=== PATIENT | female | born 1975 | race Caucasian/White ===

== ENCOUNTER 2019-12-19 05:37 | Outpatient (RCR) | payer BC ==
[~2019-12-19] VITALS: Ht 170.2 cm; Wt 86.3 kg
[~2019-12-19 05:37] MED LIST: ESTR0.62 PO; ESTR2TAB PO
== END 2019-12-19 10:16 | disposition home or self-care (01) ==
LOC: PREOP 05:37
PROVIDERS: ATTEND Internal Medicine
DX: Z01.812 Encounter for preprocedural laboratory examination (principal); Z20.828 Contact with and (suspected) exposure to other viral communicable diseases
CPT/HCPCS: 87635

== ENCOUNTER 2019-12-22 07:27 | Day surgery (SDC) | payer BC ==
--- NOTE | 2019-12-08 20:12 | HISTORY AND PHYSICAL ---
DATE OF SERVICE: COLONOSCOPY HISTORY AND PHYSICAL HISTORY OF PRESENT ILLNESS: The patient is a 44-year-old white female, who reports a past history of irritable bowel syndrome. She reported about 10 days ago after eating a handful of almonds, she developed the onset of diarrhea with crampy left lower quadrant abdominal pain. Her IBS-D symptoms have been under good control through dietary change up until that point. She did not recall previous problems with nut ingestion, although she did eat more than she was used to per her report. She had no night sweats, chills or fever and the diarrhea lasted for several days and then improved. She then had recurrence of the diarrhea 3 days ago, Wednesday evening, lasted 24 hours where she had about 6 loose nonbloody stools with intestinal bloating and also some mild nausea with no night sweats, chills or fever. She reports one colonoscopy about 9 years ago, reportedly unremarkable. PAST MEDICAL HISTORY: Significant for known BRCA2 positive status performed due to strong family history for ovarian cancer affecting her mother, her maternal grandmother and an aunt. Her mother was diagnosed at the age of 63. She is still living. Father is living at the age of 68 with reported coronary artery disease. 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 She has no past smoking history and occasional social alcohol intake, which does not aggravate her symptoms. PAST SURGICAL HISTORY: Significant for total abdominal hysterectomy and bilateral salpingo-oophorectomy done for prophylactic reasons due to BRCA2 mutation. She follows at for [facility] issues including breast screening. MEDICATIONS ON ADMISSION: Include estradiol 2 mg daily. She reports no known medical allergies. PHYSICAL EXAMINATION: GENERAL: Reveals a white female appeared to be in no acute distress. VITAL SIGNS: Weight 190.6 pounds, blood pressure 130/90, heart rate 70 and regular. HEENT: Unremarkable. Mallampati 2 pharyngeal configuration. CHEST: Clear to auscultation. NECK: Revealed no JVD, adenopathy or bruits. CARDIOVASCULAR: Reveals a regular rate and rhythm without murmur, S3 or S4. ABDOMEN: Soft, supple without mass or organomegaly. There is bilateral lower quadrant pain to palpation without rebound or guarding. EXTREMITIES: Reveal no cyanosis, clubbing or edema. ASSESSMENT AND PLAN: The patient is set up for diagnostic colonoscopy, deemed to be of higher than average risk for underlying neoplasia due to BRCA2 positive status. Prep instructions and Suprep kit were given and questions were answered. The patient was also given a flu shot today after discussion. Job ID: [id number] DocumentID: [id number] Dictated Date: 12/06/2019 16:16:39 First Coat Sander Date: 12/06/2019 17:23:00 Dictated By: KELLI XIE MD
[~2019-12-22] VITALS: Ht 170.2 cm; Wt 86.3 kg
[2019-12-22] MEDS ORDERED: D5 LR IV SOLUTION 1,000 ML IV STA ×2 (07:34→07:58)
[2019-12-22] MEDS ORDERED: D5 LR IV SOLUTION 1,000 ML IV ONE (07:38)
[2019-12-22] MEDS ORDERED: fentaNYL INJECTION 100 MCG/2 ML AMP IVP ONE (07:45)
[2019-12-22] MEDS ORDERED: MIDAZOLAM 5 MG/5 ML (VERSED) VIAL IV ONE (07:45)
--- NOTE | 2019-12-22 08:00 | Pre-Op Note & Conscious Sedat ---
Pre-Operative Progress Note H&P Reviewed The H&P was reviewed, patient examined and no changes noted. Date H&P Reviewed: Dec 22, 2019 Time H&P Reviewed: 08:00 Conscious Sedation Pre-Proced ASA Score 2 For ASA 3 and 4: Consider anesthesia and medical clearance. Also, for patients with a history of failed moderate sedation consider anesthesia. Airway Lungs Heart ASA score ASA 1: a normal healthy patient ASA 2: a patient with a mild systemic disease (mid diabetes, controlled hypertension, obesity ASA 3: a patient with a severe systemic disease that limits activity (angina, COPD, prior Myocardial infarction) ASA 4: a patient with an incapacitating disease that is a constant threat to life (CHF, renal failure) ASA 5: a moribund patient not expected to survive 24 hrs. (ruptured aneurysm) ASA 6: a declared brain- patient whose organs are being harvested. For emergent operations, add the letter E after the classification Mallampati Classification Grade 2 Sedation Plan Analgesia, Amnesia, Plan communicated to team members, Discussed options with patient/fam, Discussed risks with patient/fam The patient is an appropriate candidate to undergo the planned procedure, sedation, and anesthesia. The patient immediately re-assessed prior to indication. KELLI XIE MD Dec 22, 2019 08:00
[2019-12-22 08:20] VITALS: BP 133/95
[2019-12-22] MEDS ORDERED: PROPOFOL INJECTION 0 ML IV ONE (08:22)
[2019-12-22] MEDS ORDERED: MIDAZOLAM 2 MG/2 ML (VERSED) VIAL ONE (08:22)
[2019-12-22] MEDS ORDERED: LIDOCAINE JELLY 2% 6 ML SYRINGE TOP ONE (08:45)
[2019-12-22] MEDS ORDERED: PROPOFOL INJECTION 50 ML IV ONE (08:52)
[2019-12-22 09:05] VITALS: BP 109/70
[2019-12-22 09:10] VITALS: BP 116/72
[2019-12-22 09:15] VITALS: BP 120/79
--- NOTE | 2019-12-22 09:18 | Anesthesia-General Post-Op ---
MAC Patient Condition Mental Status/LOC: Same as Preop Cardiovascular: Satisfactory Nausea/Vomiting: Absent Respiratory: Satisfactory Pain: Controlled Complications: Absent Post Op Complications Complications None Follow Up Care/Instructions Patient Instructions None needed. Anesthesiology Discharge Order Discharge Order Patient is doing well, no complaints, stable vital signs, no apparent adverse anesthesia problems. No complications reported per nursing. JORJE URBINA CRNA Dec 22, 2019 09:17
[2019-12-22 09:45] VITALS: BP 123/85
[2019-12-22 09:55] VITALS: BP 123/85
--- NOTE | 2019-12-22 18:04 | OPERATIVE REPORT ---
DATE OF SERVICE: COLONOSCOPY SUMMARY PRIMARY CARE PHYSICIAN: Kelli Xie MD INDICATION FOR THE PROCEDURE: Left lower quadrant abdominal pain, diarrhea. DESCRIPTION OF PROCEDURE: The patient was placed in the left lateral decubitus position. Prior to undergoing colonoscopy, digital rectal evaluation was performed. Anal sphincter tone was normal and the perianal reflexes intact. No abnormalities were noted on digital inspection of anal canal or distal rectal vault. The colonoscope was then inserted into the rectum and under direct visualization and advanced to the cecum. The cecum was identified by identification of the ileocecal valve and cecal strap. Photographic documentation was obtained. Careful inspection was made. Quality of prep was fair. The patient admitted, procedure was done under Diprivan based anesthesia. FINDINGS: There were no evidence for internal or external hemorrhoids and the rectum was unremarkable. A biopsy was obtained and submitted from the rectum for microscopic colitis. The sigmoid colon, descending colon, transverse colon, ascending colon and cecum were unremarkable as was the distal terminal ileum with no evidence for inflammatory change or neoplasia or diverticular disease. Despite Diprivan anesthesia, the patient did have an irritable bowel type response, air insufflation and colonic manipulation. It is not likely the procedure would have been possible under Versed and fentanyl and certainly would have placed the patient at undue increased risk do to likely increasing amount of medication that would have been required. Future procedures will be done under Diprovan as well. Due to BRCA2 positive status, we will be abdicating repeat screening colonoscopy in 5 years. Job ID: [id number] DocumentID: [id number] Dictated Date: 12/22/2019 09:05:55 General I Farmworker Date: 12/22/2019 13:51:33 Dictated By: KELLI XIE MD [facility]
--- NOTE | 2019-12-22 19:18 | OPERATIVE REPORT ---
DATE OF SERVICE: COLONOSCOPY SUMMARY. I am her primary care physician. INDICATION FOR THE PROCEDURE: Left lower quadrant abdominal pain, diarrhea and BRCA-2 positive. DESCRIPTION OF PROCEDURE: The patient was placed in the left lateral decubitus position. Due to history of irritable bowel syndrome. The procedure was done under Diprivan based anesthesia. Digital evaluation of the anal canal and rectum was unremarkable. Anal sphincter tone was normal and the perianal reflexes intact. The colonoscope was then inserted into the rectum and under direct visualization advanced to cecum. The cecum was identified by identification of the ileocecal valve and cecal strap. Distal several centimeters of terminal ileum were inspected and unremarkable. Careful inspection was made as the colonoscope was withdrawn. Quality of prep was good. FINDINGS: There was no evidence for internal or external hemorrhoids and the rectum was unremarkable. Due to history of diarrhea, biopsy was obtained and submitted for microscopic colitis evaluation. The sigmoid colon, descending colon, splenic flexure, transverse colon, hepatic flexure, ascending colon, cecum and distal several centimeters of terminal ileum were unremarkable to gross inspection. No evidence for diverticular disease was noted. ASSESSMENT: Normal colonoscopy to the cecum including distal terminal ileum. A biopsy is pending for evaluation of microscopic colitis. Due to the fact the patient is BRCA2 positive, will be advocating repeat screening colonoscopy in 5 years. The patient was reassured by today's findings. Job ID: [id number] DocumentID: [id number] Dictated Date: 12/22/2019 10:19:53 Bench Scientist Date: 12/22/2019 19:18:15 Dictated By: KELLI XIE MD [facility]
== END 2019-12-22 09:55 | disposition home or self-care (01) ==
LOC: ENDO 07:27
PROVIDERS: ATTEND Internal Medicine
DX: R10.32 Left lower quadrant pain (principal); R19.7 Diarrhea, unspecified; Z15.01 Genetic susceptibility to malignant neoplasm of breast; Z90.710 Acquired absence of both cervix and uterus; Z90.722 Acquired absence of ovaries, bilateral; Z88.5 Allergy status to narcotic agent; Z80.41 Family history of malignant neoplasm of ovary; Z82.49 Family history of ischemic heart disease and other diseases of the circulatory system
CPT/HCPCS: 88305